=== PATIENT | male | born 1980 | race Two or more races ===

== ENCOUNTER 2018-11-29 12:49 | Emergency (ER) | payer MEDICAID ==
[~2018-11-29] VITALS: Ht 177.8 cm; Wt 112.9 kg
--- NOTE | 2018-11-29 12:57 | NUR ---
PT LUKASZ FROM HOME FOR PSYCH EVAL FOR AGGRESSIVE BEHAVIOR; PT AAOX4, PT ON MONITOR, PT TO BED 15, NAD NOTED, VSS, PENDING MD CASTRO
--- NOTE | 2018-11-29 13:19 | NUR ---
Parent (Nehal) contact info [phone]
[2018-11-29 13:34] LABS: BASOPHILS # (AUTO) 0.1 /CMM (0.0-0.2); EOSINOPHILS % (AUTO) 1.7 % (0.0-6.0); HEMATOCRIT 46 % (39-51); HEMOGLOBIN 15.9 g/dL (13.5-17.5); LYMPHOCYTES # (AUTO) 1.2 /CMM (0.8-4.8); LYMPHOCYTES % (AUTO) 15.9 % (20.0-44.0); MEAN CORPUSCULAR HGB CONC 34 g/dl (31.0-36.0); MEAN CORPUSCULAR VOLUME 93 fL (80-96); MONOCYTES # (AUTO) 0.6 /CMM (0.1-1.30); MONOCYTES % (AUTO) 7.5 % (2.0-12.0); NEUTROPHILS # (AUTO) 5.5 /CMM (1.8-8.9); NEUTROPHILS % (AUTO) 73.9 % (43.0-81.0); PLATELET COUNT (AUTO) 253 /CMM (150-450); RED BLOOD CELL COUNT(AUTO) 4.98 MIL/uL (4.5-6.0); WHITE BLOOD COUNT (AUTO) 7.5 K/uL (4.3-11.0)
[2018-11-29 13:35] LABS: APPEARANCE,URINE Clear (CLEAR); BILIRUBIN,URINE Negative (NEGATIVE); BLOOD, URINE Negative Ery/uL (NEGATIVE); COLOR,URINE Yellow (YELLOW); KETONES,URINE Negative (NEGATIVE); LEUKOCYTE ESTERASE ,URINE Negative (NEGATIVE); NITRITE, URINE Negative (NEGATIVE); PH,URINE 5.5 (5.0-8.0); PROTEIN,URINE Negative (NEGATIVE); UGLUCOSE Negative (NEGATIVE); UROBILINOGEN,URINE 0.2 EU/dL (0.2)
[2018-11-29 13:42] LABS: CALCIUM, SERUM 8.6 mg/dL (8.5-10.1); CARBON DIOXIDE 27 mmol/L (21-32); CHLORIDE 101 mmol/L (98-107); GLUCOSE 122 mg/dL (74-106); POTASSIUM 4.3 mmol/L (3.5-5.1); SODIUM SERUM 138 mmol/L (136-145); UREA NITROGEN, BLOOD 11 mg/dL (7-18)
[2018-11-29 13:47] LABS: ALANINE AMINOTRANSFERASE 48 U/L (12-78); ALBUMIN 4.1 g/dL (3.4-5.0); ALCOHOL, BLOOD 212 mg/dL (0-0); ALKALINE PHOSPHATASE 88 U/L (46-116); ASPARTATE AMINOTRANSFERASE 38 U/L (15-37); BILIRUBIN,DIRECT 0.2 mg/dL (0.0-0.2); BILIRUBIN,TOTAL 0.7 mg/dL (0.2-1.0); TOTAL PROTEIN, SERUM 7.6 g/dL (6.4-8.2)
[2018-11-29 13:48] LABS: ACETAMINOPHEN < 10 ug/ml (10-30)
--- NOTE | 2018-11-29 14:30 | NUR ---
CALLED [facility]; PT IS MEDICALLY CLEARED READY TO BE SEEN FOR PSYCH
[2018-11-29] MEDS ORDERED: OLANZAPINE 10 MG VIAL IM ONE ×2 (19:30→19:48)
--- NOTE | 2018-11-30 04:41 | NUR ---
PT RESTING IN BED, NAD NOTED. WILL CONTINUE TO MONITOR.
--- NOTE | 2018-11-30 06:00 | NUR ---
Pt resting in bed, NAD noted. Will continue to monitor.
--- NOTE | 2018-11-30 11:49 | NUR ---
[facility] RN READING INSTRUCTOR SPOKE TO PATIENT REGARDING [employer] HOLD. PER [facility] PT IS NOT 5150 ELIGIBLE, PT NOT ON A HOLD. PT IS OK TO DC HOME. PT DECLINES TRANSPORTATION FROM THE HOSPITAL. ALL DC PAPERWORK GIVEN TO PT. PT LEFT IN STABLE CONDITION.
[2018-11-30 12:12] VITALS: BP 142/80
== END 2018-11-30 12:15 | disposition home or self-care (01) ==
LOC: ER 12:51
DX: F25.9 Schizoaffective disorder, unspecified (principal); R45.6 Violent behavior; F22 Delusional disorders; I10 Essential (primary) hypertension; Z98.890 Other specified postprocedural states
CPT/HCPCS: 36415 ×2; 80048; 80076; 80305; 80307 ×2; 80329; 81001; 85025; 96372; 99285; G0480; J3490; 81000-TC

== ENCOUNTER 2020-10-16 14:56 | Emergency (ER) | payer MEDICAID, MEDICARE ==
[~2020-10-16] VITALS: Ht 175.3 cm; Wt 131.5 kg
[2020-10-16 15:21] LABS: HEMOGLOBIN 15.8 g/dL (13.5-17.5)
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
[2020-10-16 15:24] LABS: BASOPHILS # (AUTO) 0.1 /CMM (0.0-0.2); EOSINOPHILS % (AUTO) 1.1 % (0.0-6.0); HEMATOCRIT 47 % (39-51); LYMPHOCYTES # (AUTO) 1.2 /CMM (0.8-4.8); MEAN CORPUSCULAR HGB CONC 34 g/dl (31.0-36.0); MEAN CORPUSCULAR VOLUME 95 fL (80-96); MONOCYTES # (AUTO) 0.9 /CMM (0.1-1.30); MONOCYTES % (AUTO) 8.9 % (2.0-12.0); NEUTROPHILS # (AUTO) 7.8 /CMM (1.8-8.9); PLATELET COUNT (AUTO) 276 /CMM (150-450); RED BLOOD CELL COUNT(AUTO) 4.89 MIL/uL (4.5-6.0); WHITE BLOOD COUNT (AUTO) 10.1 K/uL (4.3-11.0)
[2020-10-16] MEDS ORDERED: LORAZEPAM 1 MG TABLET PO ONE (15:30)
[2020-10-16] MEDS ORDERED: AMLODIPINE BESYLATE 5 MG TABLET PO ONE (15:30)
[2020-10-16 15:31] LABS: CALCIUM, SERUM 9.2 mg/dL (8.5-10.1); CREATININE 1.1 mg/dL (0.6-1.3); POTASSIUM 3.7 mmol/L (3.5-5.1)
[2020-10-16] MEDS ORDERED: LORAZEPAM 1 MG TABLET ONE (15:33)
[2020-10-16] MEDS ORDERED: AMLODIPINE BESYLATE 10 MG TABLET ONE (15:34)
[2020-10-16 15:36] LABS: BILIRUBIN,DIRECT 0.1 mg/dL (0.0-0.2); BILIRUBIN,TOTAL 0.5 mg/dL (0.2-1.0); TOTAL PROTEIN, SERUM 7.9 g/dL (6.4-8.2)
[2020-10-16 16:16] LABS: BILIRUBIN,URINE NEGATIVE (NEGATIVE); COLOR,URINE YELLOW (YELLOW); LEUKOCYTE ESTERASE ,URINE NEGATIVE (NEGATIVE); NITRITE, URINE NEGATIVE (NEGATIVE); PROTEIN,URINE NEGATIVE (NEGATIVE); UGLUCOSE NEGATIVE (NEGATIVE); UROBILINOGEN,URINE 0.2 EU/dL (0.2)
[2020-10-16] MEDS ORDERED: IV NS 0.9% 1,000 ML BAG IV ONE (17:00)
[2020-10-16] MEDS ORDERED: ONDANSETRON HCL/PF 4 MG/2 ML VIAL ONE (17:03)
[2020-10-16] MEDS ORDERED: OLANZAPINE 5 MG TABLET ONE (17:04)
--- NOTE | 2020-10-16 17:12 | NUR ---
pt still notd tachycardic. pt is receiving 1l ns as per md ordered. pt also verbalized that he is nauseous and dry heeving. md aware ad received order for zofran 4mg iv x 1
[2020-10-16] MEDS ORDERED: ONDANSETRON HCL/PF 4 MG/2 ML VIAL IV ONE (17:30)
[2020-10-16] MEDS ORDERED: OLANZAPINE 5 MG TABLET PO ONE (17:30)
--- NOTE | 2020-10-16 19:50 | NUR ---
PHLEB AT BEDSIDE FOR BLOOD DRAW.
--- NOTE | 2020-10-16 19:50 | NUR ---
COVID SWAB DONE AND SENT TO LAB
--- NOTE | 2020-10-16 19:50 | NUR ---
PT PROVIDED WITH DINNER
--- NOTE | 2020-10-16 20:08 | NUR ---
LAB CALLED REGARDING NEGATIVE COVID RESULT.
--- NOTE | 2020-10-16 20:39 | NUR ---
ATTEMPTED TO CONTACT [facility] FOR PSYCH EVAL. NO ANSWER, LEFT A MESSAGE.
[2020-10-16] MEDS ORDERED: diphenhydrAMINE HCL 50 MG/ML VIAL IV ONE (21:00)
[2020-10-16] MEDS ORDERED: LORAZEPAM INJ 2 MG/ML VIAL IV ONE (21:00)
--- NOTE | 2020-10-16 21:00 | NUR ---
Noted having hr of 130s. MD made aware. Orders received to give Ativan 1mg and Benadryl 25mg IV x 1 dose
[2020-10-16] MEDS ORDERED: LORAZEPAM INJ 2 MG/ML VIAL ONE (21:11)
[2020-10-16] MEDS ORDERED: diphenhydrAMINE HCL 50 MG/ML VIAL ONE (21:12)
--- NOTE | 2020-10-16 22:26 | NUR ---
ATTEMPTED TO CONTACT [facility] AGAIN FOR PSYCH EVAL. STILL NO ANSWER. VOICEMAIL LEFT.
--- NOTE | 2020-10-16 22:53 | NUR ---
[facility] ETA 1.5HRS
--- NOTE | 2020-10-17 00:55 | NUR ---
[facility] AT BEDSIDE SPEAKING WITH PATIENT.
--- NOTE | 2020-10-17 01:47 | NUR ---
CLINICAL AND FACESHEET FAXED TO [facility] FOR PSYCH ADMISSION.
[2020-10-17] MEDS ORDERED: LORAZEPAM INJ 2 MG/ML VIAL ONE (02:39)
[2020-10-17] MEDS ORDERED: LORAZEPAM INJ 2 MG/ML VIAL IV ONE (03:00)
--- NOTE | 2020-10-17 06:00 | NUR ---
MD SOLIS NOTIFIED OF PATIENT'S BLOOD PRESSURE 181/116. NO ORDERS GIVEN.
--- NOTE | 2020-10-17 06:40 | NUR ---
[facility] ETA 0900
--- NOTE | 2020-10-17 08:37 | NUR ---
CALLED ANDREIA DOMINGUEZ [phone] AND FAXED CLINICALS TO [phone]
--- NOTE | 2020-10-17 08:59 | NUR ---
SAMMI HAVE A BED. PLEASE CALL
--- NOTE | 2020-10-17 09:47 | NUR ---
PT GOING TO UN[address] [place], [address]. ADMITTING: DR MUSTAFA # FOR REPORT,
--- NOTE | 2020-10-17 10:04 | NUR ---
CALLED TRANSPORT ETA FOR [facility] 60 MINS.
[2020-10-17 10:59] VITALS: BP 138/96
--- NOTE | 2020-10-17 11:06 | NUR ---
REPORT GIVEN TO AB AT [facility]. PT AWAITING TRANSFER AMBULANCE.
--- NOTE | 2020-10-17 11:38 | NUR ---
REPORT GIVEN TO EMT FOR PT TRANSFER TO [facility].
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
== END 2020-10-17 12:01 ==
LOC: ER 14:59
DX: F10.229 Alcohol dependence with intoxication, unspecified (principal); Y90.6 Blood alcohol level of 120-199 mg/100 ml; F31.9 Bipolar disorder, unspecified; Z20.822 Contact with and (suspected) exposure to COVID-19; R00.0 Tachycardia, unspecified; Z91.14 Patient's other noncompliance with medication regimen; I10 Essential (primary) hypertension; Z85.820 Personal history of malignant melanoma of skin; R11.0 Nausea
CPT/HCPCS: 36415; 80048; 80076; 80299; 80307; 80320 ×2; 81003; 85025; 87426; 96361; 96374; 96375; 96376; 99285; J1200; J2060 ×2; J2405; J7030; C9803; G0480